=== PATIENT | male | born 1955 | race Caucasian/White ===

== ENCOUNTER 2022-10-30 19:05 | Outpatient (CLI) | payer MEDICARE | END 2022-10-31 05:25 | disposition home or self-care (01) | LOC: 3 N SLEEP 19:05 | PROVIDERS: ATTEND Internal Medicine Critical Care Medicine | DX: G47.33 Obstructive sleep apnea (adult) (pediatric) (principal) | CPT/HCPCS: 95811 ==

== ENCOUNTER 2023-09-22 19:24 | Outpatient (CLI) | payer MEDICARE ==
--- NOTE | 2023-10-15 21:55 | P.PCN ---
Date of Procedure: 09/22/23 Operative Findings: CPAP titration report Date of service is 09/22/2023 Pertinent history This patient has hypersomnia and there was a concern for obstructive sleep apnea. The patient was falling sleep was driving. He had loud snoring and witnessed apneas. He quit taking NyQuil and Tylenol PM. He is gaining weight. The napping during the day and they're also issues with his sleep hygiene in terms of regulation of his sleep schedule. His comorbid conditions include cough variant asthma, hyperlipidemia, previous history of CVA and a component of chronic insomnia for which the patient was treated with cognitive behavioral therapy.. The patient underwent a screening polysomnography and the testing was completed on 10/30/2022 and the patient was found to have moderate severe ROBYN with an AHI of 28 and based on that, the patient is coming in to undergo a CPAP titration study. Physical findings The patient's weight is 248 with a body mass index of 35 Technical description The patient was studied using a standard complex polysomnography protocol that included recording of the Lead II EKG, Central, occipital and frontal EEG, right and left outer canthus EOG, submental EMG, right and left anterior tibialis EMG, respiratory airflow by thermocouple and or pressure/flow transducer, respiratory efforts by abdominal and thoracic PVDF belts, oxygen saturation by cable oximetry. Position by observation synchronized the PSG. Equipment used: [employer]. Stepwise CPAP titration was done to eliminate obstructive respiratory events Sleep characteristics The total recording duration was 389 minutes. The total sleep time was 207 minutes. Overall sleep efficiency was 54.2%. Latency to sleep onset was 14 minutes. Latency to REM sleep was 84.5 minutes. The sleep architecture was characterized by 9.7% stage I, 64.7% stage II, 0% stage III and 26.8% REM sleep. CPAP titration summary CPAP titration was started initially at a pressure of 4 cm of water and the pressure was gradually increased by increments of 1 cm to reach a maximum CPAP pressure of 10 cm of water. This was a very successful titration. The patient was studied in supine and supine body position. All sleep stages were encountered including REM sleep. At the pressure of 9 and 10 cm of water, the patient encountered no significant nocturnal oxygen desaturation and patient was able to maintain a saturation of 90%. In addition, there was no obstructive respiratory events including obstructive apneas and hypopneas. No central events were noted Cardiac summary The average heart rate was 62 with a minimum heart rate of 50 and a maximum heart rate of 81 Sleep continuity summary The patient had total of 10 arousals with a arousal index of 2.9. Respiratory arousal index was 0.3 Periodic limb movements Excessive number of periodic limb were noted, a total of 259 with an index of 75.1. No significant arousals related to periodic limb movement activity and arousal index rated 2 periodic limb movements was 0.3 Assessment Obstructive sleep apnea moderate in severity with an AHI of 28.5 associated with some mild nocturnal oxygen desaturations. The patient underwent a successful CPAP titration. Chronic insomnia with poor ability for sleep maintenance. The patient's overall sleep efficiency was 54% while utilizing CPAP therapy Chronic fatigue and sleepiness Excessive periodic limb movement activity without causing any significant arousals History of CVA Hyperlipidemia Cough variant asthma Plan Initiate CPAP therapy at a pressure of 9 cm of water with a C-Flex of 3. The patient is going to be provided with an AirFit F20 fullface mask large size. The patient was seen back in office in 30 to 90 days to assess clinical response and compliancy. Anticipate clinical improvement with improvement in his daytime level of alertness. Will monitor his poor sleep efficiency and will make adjustments on his medication and use a hypnotic agent should the patient have difficulties in sleep initiation and maintenance. Will continue to follow.
== END 2023-09-23 05:20 | disposition home or self-care (01) ==
LOC: 3 N SLEEP 19:24
PROVIDERS: ATTEND Internal Medicine Critical Care Medicine
DX: G47.33 Obstructive sleep apnea (adult) (pediatric)
CPT/HCPCS: 95811